=== PATIENT | female | born 1960 | race African-American/Black ===

== ENCOUNTER 2021-06-25 08:09 | Outpatient (CLI) | payer BC | END 2021-06-25 08:10 | disposition home or self-care (01) | LOC: CSHWCC 08:09 | PROVIDERS: ATTEND Nurse Practitioner Family | DX: M27.2 Inflammatory conditions of jaws (principal); E11.65 Type 2 diabetes mellitus with hyperglycemia; E78.2 Mixed hyperlipidemia; I10 Essential (primary) hypertension; Z85.3 Personal history of malignant neoplasm of breast; Z85.818 Personal history of malignant neoplasm of other sites of lip, oral cavity, and pharynx | CPT/HCPCS: 99202; G0463 ==

== ENCOUNTER 2024-09-03 09:19 | Outpatient (CLI) | payer BC | END 2024-09-03 09:20 | disposition home or self-care (01) | LOC: CSHWCC 09:19 | PROVIDERS: ATTEND Nurse Practitioner Family | DX: E11.622 Type 2 diabetes mellitus with other skin ulcer (principal); L97.212 Non-pressure chronic ulcer of right calf with fat layer exposed; L97.312 Non-pressure chronic ulcer of right ankle with fat layer exposed; G90.09 Other idiopathic peripheral autonomic neuropathy | CPT/HCPCS: 11043; 11046; 99214; G0463 ==

== ENCOUNTER 2024-09-07 14:20 | Outpatient (CLI) | payer BC | END 2024-09-07 14:21 | disposition home or self-care (01) | LOC: CSHWCC 14:20 | PROVIDERS: ATTEND Nurse Practitioner Family | DX: E11.622 Type 2 diabetes mellitus with other skin ulcer (principal); L97.212 Non-pressure chronic ulcer of right calf with fat layer exposed; L97.312 Non-pressure chronic ulcer of right ankle with fat layer exposed; G90.09 Other idiopathic peripheral autonomic neuropathy | CPT/HCPCS: 29581 ==

== ENCOUNTER 2024-09-10 15:03 | Outpatient (CLI) | payer BC | END 2024-09-10 15:04 | disposition home or self-care (01) | LOC: CSHWCC 15:03 | PROVIDERS: ATTEND Nurse Practitioner Family | DX: E11.622 Type 2 diabetes mellitus with other skin ulcer (principal); L97.212 Non-pressure chronic ulcer of right calf with fat layer exposed; L97.312 Non-pressure chronic ulcer of right ankle with fat layer exposed; G90.09 Other idiopathic peripheral autonomic neuropathy | CPT/HCPCS: 11042; 11045 ==

== ENCOUNTER 2024-09-17 14:26 | Outpatient (CLI) | payer BC | END 2024-09-17 14:27 | disposition home or self-care (01) | LOC: CSHWCC 14:26 | PROVIDERS: ATTEND Nurse Practitioner Family | DX: E11.622 Type 2 diabetes mellitus with other skin ulcer (principal); L97.212 Non-pressure chronic ulcer of right calf with fat layer exposed; L97.312 Non-pressure chronic ulcer of right ankle with fat layer exposed; G90.09 Other idiopathic peripheral autonomic neuropathy | CPT/HCPCS: 11042; 11045 ==

== ENCOUNTER 2024-10-05 11:53 | Outpatient (CLI) | payer BC | END 2024-10-05 11:54 | disposition home or self-care (01) | LOC: CSHWCC 11:53 | PROVIDERS: ATTEND Nurse Practitioner Family | DX: E11.622 Type 2 diabetes mellitus with other skin ulcer (principal); L97.212 Non-pressure chronic ulcer of right calf with fat layer exposed; L97.312 Non-pressure chronic ulcer of right ankle with fat layer exposed; G90.09 Other idiopathic peripheral autonomic neuropathy | CPT/HCPCS: 29581 ==

== ENCOUNTER 2024-10-08 15:36 | Outpatient (CLI) | payer BC | END 2024-10-08 15:37 | disposition home or self-care (01) | LOC: CSHWCC 15:36 | PROVIDERS: ATTEND Nurse Practitioner Family | DX: E11.622 Type 2 diabetes mellitus with other skin ulcer (principal); L97.212 Non-pressure chronic ulcer of right calf with fat layer exposed; L97.312 Non-pressure chronic ulcer of right ankle with fat layer exposed; G90.09 Other idiopathic peripheral autonomic neuropathy | CPT/HCPCS: 11042; 11045 ==

== ENCOUNTER 2025-02-24 09:14 | Outpatient (CLI) | payer BC | END 2025-02-24 09:15 | disposition home or self-care (01) | LOC: CSHWCC 09:14 | PROVIDERS: ATTEND Nurse Practitioner Family | DX: E11.622 Type 2 diabetes mellitus with other skin ulcer (principal); L97.212 Non-pressure chronic ulcer of right calf with fat layer exposed; L97.312 Non-pressure chronic ulcer of right ankle with fat layer exposed; G90.09 Other idiopathic peripheral autonomic neuropathy; I87.2 Venous insufficiency (chronic) (peripheral) | CPT/HCPCS: 15271; Q4186 ==

== ENCOUNTER 2025-03-29 12:23 | Outpatient (CLI) | payer BC | END 2025-03-29 12:24 | disposition home or self-care (01) | LOC: CSHWCC 12:23 | PROVIDERS: ATTEND Nurse Practitioner Family | DX: E11.622 Type 2 diabetes mellitus with other skin ulcer (principal); L97.212 Non-pressure chronic ulcer of right calf with fat layer exposed; L97.312 Non-pressure chronic ulcer of right ankle with fat layer exposed; G90.09 Other idiopathic peripheral autonomic neuropathy; I87.2 Venous insufficiency (chronic) (peripheral) | CPT/HCPCS: 11042 ==

== ENCOUNTER 2025-04-01 10:30 | Outpatient (CLI) | payer BC | END 2025-04-01 10:31 | disposition home or self-care (01) | LOC: CSHWCC 10:30 | PROVIDERS: ATTEND Nurse Practitioner Family | DX: E11.622 Type 2 diabetes mellitus with other skin ulcer (principal); L97.212 Non-pressure chronic ulcer of right calf with fat layer exposed; L97.312 Non-pressure chronic ulcer of right ankle with fat layer exposed; G90.09 Other idiopathic peripheral autonomic neuropathy; I87.2 Venous insufficiency (chronic) (peripheral) | CPT/HCPCS: 29581 ==

== ENCOUNTER 2025-04-05 15:53 | Outpatient (CLI) | payer BC | END 2025-04-05 15:54 | disposition home or self-care (01) | LOC: CSHWCC 15:53 | PROVIDERS: ATTEND Nurse Practitioner Family | DX: E11.622 Type 2 diabetes mellitus with other skin ulcer (principal); L97.212 Non-pressure chronic ulcer of right calf with fat layer exposed; L97.312 Non-pressure chronic ulcer of right ankle with fat layer exposed; I87.2 Venous insufficiency (chronic) (peripheral); G90.09 Other idiopathic peripheral autonomic neuropathy | CPT/HCPCS: 11042 ==

== ENCOUNTER 2025-04-08 08:08 | Outpatient (CLI) | payer BC | END 2025-04-08 08:09 | disposition home or self-care (01) | LOC: CSHWCC 08:08 | PROVIDERS: ATTEND Nurse Practitioner Family | DX: E11.622 Type 2 diabetes mellitus with other skin ulcer (principal); L97.212 Non-pressure chronic ulcer of right calf with fat layer exposed; L97.312 Non-pressure chronic ulcer of right ankle with fat layer exposed; G90.09 Other idiopathic peripheral autonomic neuropathy; I87.2 Venous insufficiency (chronic) (peripheral) | CPT/HCPCS: 29581 ==

== ENCOUNTER 2025-04-13 15:46 | Outpatient (CLI) | payer BC | END 2025-04-13 15:47 | disposition home or self-care (01) | LOC: CSHWCC 15:46 | PROVIDERS: ATTEND Nurse Practitioner Family | DX: E11.622 Type 2 diabetes mellitus with other skin ulcer (principal); L97.212 Non-pressure chronic ulcer of right calf with fat layer exposed; L97.312 Non-pressure chronic ulcer of right ankle with fat layer exposed; I87.2 Venous insufficiency (chronic) (peripheral); G90.09 Other idiopathic peripheral autonomic neuropathy | CPT/HCPCS: 11042 ==

== ENCOUNTER 2025-04-28 14:59 | Outpatient (CLI) | payer BC | END 2025-04-28 15:00 | disposition home or self-care (01) | LOC: CSHWCC 14:59 | PROVIDERS: ATTEND Nurse Practitioner Family | DX: E11.622 Type 2 diabetes mellitus with other skin ulcer (principal); L97.212 Non-pressure chronic ulcer of right calf with fat layer exposed; L97.312 Non-pressure chronic ulcer of right ankle with fat layer exposed; G90.09 Other idiopathic peripheral autonomic neuropathy; I87.2 Venous insufficiency (chronic) (peripheral) | CPT/HCPCS: 11042; 11045; 99213; G0463 ==

== ENCOUNTER 2025-05-03 15:16 | Outpatient (CLI) | payer BC | END 2025-05-03 15:17 | disposition home or self-care (01) | LOC: CSHWCC 15:16 | PROVIDERS: ATTEND Nurse Practitioner Family | DX: E11.622 Type 2 diabetes mellitus with other skin ulcer (principal); L97.212 Non-pressure chronic ulcer of right calf with fat layer exposed; L97.312 Non-pressure chronic ulcer of right ankle with fat layer exposed; G90.09 Other idiopathic peripheral autonomic neuropathy; I87.2 Venous insufficiency (chronic) (peripheral) | CPT/HCPCS: 29581 ==

== ENCOUNTER 2025-05-10 15:21 | Outpatient (CLI) | payer BC | END 2025-05-10 15:22 | disposition home or self-care (01) | LOC: CSHWCC 15:21 | PROVIDERS: ATTEND Nurse Practitioner Family | DX: E11.622 Type 2 diabetes mellitus with other skin ulcer (principal); L97.212 Non-pressure chronic ulcer of right calf with fat layer exposed; L97.312 Non-pressure chronic ulcer of right ankle with fat layer exposed; I87.2 Venous insufficiency (chronic) (peripheral); L08.9 Local infection of the skin and subcutaneous tissue, unspecified; E11.43 Type 2 diabetes mellitus with diabetic autonomic (poly)neuropathy | CPT/HCPCS: 11042; 99213; G0463 ==

== ENCOUNTER 2025-05-13 15:21 | Outpatient (CLI) | payer BC | END 2025-05-13 15:22 | disposition home or self-care (01) | LOC: CSHWCC 15:21 | PROVIDERS: ATTEND Nurse Practitioner Family | DX: E11.622 Type 2 diabetes mellitus with other skin ulcer (principal); L97.212 Non-pressure chronic ulcer of right calf with fat layer exposed; L97.312 Non-pressure chronic ulcer of right ankle with fat layer exposed; I87.2 Venous insufficiency (chronic) (peripheral); L08.9 Local infection of the skin and subcutaneous tissue, unspecified; G90.09 Other idiopathic peripheral autonomic neuropathy | CPT/HCPCS: 29581 ==

== ENCOUNTER 2025-05-17 15:16 | Outpatient (CLI) | payer BC | END 2025-05-17 15:17 | disposition home or self-care (01) | LOC: CSHWCC 15:16 | PROVIDERS: ATTEND Nurse Practitioner Family | DX: E11.622 Type 2 diabetes mellitus with other skin ulcer (principal); L97.212 Non-pressure chronic ulcer of right calf with fat layer exposed; L97.312 Non-pressure chronic ulcer of right ankle with fat layer exposed; G90.09 Other idiopathic peripheral autonomic neuropathy; I87.2 Venous insufficiency (chronic) (peripheral); L08.9 Local infection of the skin and subcutaneous tissue, unspecified | CPT/HCPCS: 11042 ==

== ENCOUNTER 2025-05-20 15:10 | Outpatient (CLI) | payer BC | END 2025-05-20 15:11 | disposition home or self-care (01) | LOC: CSHWCC 15:10 | PROVIDERS: ATTEND Nurse Practitioner Family | DX: E11.622 Type 2 diabetes mellitus with other skin ulcer (principal); L97.212 Non-pressure chronic ulcer of right calf with fat layer exposed; L97.312 Non-pressure chronic ulcer of right ankle with fat layer exposed; G90.09 Other idiopathic peripheral autonomic neuropathy; I87.2 Venous insufficiency (chronic) (peripheral); L08.9 Local infection of the skin and subcutaneous tissue, unspecified | CPT/HCPCS: 29581 ==

== ENCOUNTER 2025-05-23 15:43 | Outpatient (CLI) | payer BC | END 2025-05-23 15:44 | disposition home or self-care (01) | LOC: CSHWCC 15:43 | PROVIDERS: ATTEND Nurse Practitioner Family | DX: E11.622 Type 2 diabetes mellitus with other skin ulcer (principal); L97.212 Non-pressure chronic ulcer of right calf with fat layer exposed; L97.312 Non-pressure chronic ulcer of right ankle with fat layer exposed; E11.43 Type 2 diabetes mellitus with diabetic autonomic (poly)neuropathy; I87.2 Venous insufficiency (chronic) (peripheral); L08.9 Local infection of the skin and subcutaneous tissue, unspecified | CPT/HCPCS: 99211; G0463 ==

== ENCOUNTER 2025-05-26 15:26 | Outpatient (CLI) | payer BC | END 2025-05-26 15:27 | disposition home or self-care (01) | LOC: CSHWCC 15:26 | PROVIDERS: ATTEND Nurse Practitioner Family | DX: E11.622 Type 2 diabetes mellitus with other skin ulcer (principal); L97.212 Non-pressure chronic ulcer of right calf with fat layer exposed; L97.312 Non-pressure chronic ulcer of right ankle with fat layer exposed; G90.09 Other idiopathic peripheral autonomic neuropathy; I87.2 Venous insufficiency (chronic) (peripheral); L08.9 Local infection of the skin and subcutaneous tissue, unspecified | CPT/HCPCS: 11042 ==

== ENCOUNTER 2025-06-02 15:09 | Outpatient (CLI) | payer BC | END 2025-06-02 15:10 | disposition home or self-care (01) | LOC: CSHWCC 15:09 | PROVIDERS: ATTEND Nurse Practitioner Family | DX: E11.622 Type 2 diabetes mellitus with other skin ulcer (principal); L97.212 Non-pressure chronic ulcer of right calf with fat layer exposed; L97.312 Non-pressure chronic ulcer of right ankle with fat layer exposed; G90.09 Other idiopathic peripheral autonomic neuropathy; I87.2 Venous insufficiency (chronic) (peripheral); L08.9 Local infection of the skin and subcutaneous tissue, unspecified | CPT/HCPCS: 11042; 11045; 99213; G0463 ==

== ENCOUNTER 2025-06-07 15:01 | Outpatient (CLI) | payer BC | END 2025-06-07 15:02 | disposition home or self-care (01) | LOC: CSHWCC 15:01 | PROVIDERS: ATTEND Nurse Practitioner Family | DX: E11.622 Type 2 diabetes mellitus with other skin ulcer (principal); L97.212 Non-pressure chronic ulcer of right calf with fat layer exposed; L97.312 Non-pressure chronic ulcer of right ankle with fat layer exposed; G90.09 Other idiopathic peripheral autonomic neuropathy; I87.2 Venous insufficiency (chronic) (peripheral); L08.9 Local infection of the skin and subcutaneous tissue, unspecified | CPT/HCPCS: 29581 ==

== ENCOUNTER 2025-06-10 15:19 | Outpatient (CLI) | payer BC | END 2025-06-10 15:20 | disposition home or self-care (01) | LOC: CSHWCC 15:19 | PROVIDERS: ATTEND Nurse Practitioner Family | DX: E11.622 Type 2 diabetes mellitus with other skin ulcer (principal); L97.212 Non-pressure chronic ulcer of right calf with fat layer exposed; L97.312 Non-pressure chronic ulcer of right ankle with fat layer exposed; G90.09 Other idiopathic peripheral autonomic neuropathy; I87.2 Venous insufficiency (chronic) (peripheral); L08.9 Local infection of the skin and subcutaneous tissue, unspecified | CPT/HCPCS: 11042; 11045 ==

== ENCOUNTER 2025-06-14 14:53 | Outpatient (CLI) | payer BC | END 2025-06-14 14:54 | disposition home or self-care (01) | LOC: CSHWCC 14:53 | PROVIDERS: ATTEND Nurse Practitioner Family | DX: E11.622 Type 2 diabetes mellitus with other skin ulcer (principal); L97.212 Non-pressure chronic ulcer of right calf with fat layer exposed; L97.312 Non-pressure chronic ulcer of right ankle with fat layer exposed; G90.09 Other idiopathic peripheral autonomic neuropathy; I87.2 Venous insufficiency (chronic) (peripheral); L08.9 Local infection of the skin and subcutaneous tissue, unspecified | CPT/HCPCS: 11042; 99213; G0463 ==

== ENCOUNTER 2025-06-17 14:59 | Outpatient (CLI) | payer BC | END 2025-06-17 15:00 | disposition home or self-care (01) | LOC: CSHWCC 14:59 | PROVIDERS: ATTEND Nurse Practitioner Family | DX: E11.622 Type 2 diabetes mellitus with other skin ulcer (principal); L97.212 Non-pressure chronic ulcer of right calf with fat layer exposed; L97.312 Non-pressure chronic ulcer of right ankle with fat layer exposed; G90.09 Other idiopathic peripheral autonomic neuropathy; I87.2 Venous insufficiency (chronic) (peripheral); L08.9 Local infection of the skin and subcutaneous tissue, unspecified | CPT/HCPCS: 99212; G0463 ==

== ENCOUNTER 2025-06-24 15:00 | Outpatient (CLI) | payer BC | END 2025-06-24 15:01 | disposition home or self-care (01) | LOC: CSHWCC 15:00 | PROVIDERS: ATTEND Nurse Practitioner Family | DX: E11.622 Type 2 diabetes mellitus with other skin ulcer (principal); L97.212 Non-pressure chronic ulcer of right calf with fat layer exposed; L97.312 Non-pressure chronic ulcer of right ankle with fat layer exposed; G90.09 Other idiopathic peripheral autonomic neuropathy; I87.2 Venous insufficiency (chronic) (peripheral); L08.9 Local infection of the skin and subcutaneous tissue, unspecified | CPT/HCPCS: 11042; 29581 ==

== ENCOUNTER 2025-06-30 15:08 | Outpatient (CLI) | payer BC | END 2025-06-30 15:09 | disposition home or self-care (01) | LOC: CSHWCC 15:08 | PROVIDERS: ATTEND Nurse Practitioner Family | DX: E11.622 Type 2 diabetes mellitus with other skin ulcer (principal); L97.212 Non-pressure chronic ulcer of right calf with fat layer exposed; L97.312 Non-pressure chronic ulcer of right ankle with fat layer exposed; G90.09 Other idiopathic peripheral autonomic neuropathy; I87.2 Venous insufficiency (chronic) (peripheral); L08.9 Local infection of the skin and subcutaneous tissue, unspecified | CPT/HCPCS: 11042 ==

== ENCOUNTER 2025-08-11 15:04 | Outpatient (CLI) | payer BC | END 2025-08-11 15:05 | disposition home or self-care (01) | LOC: CSHWCC 15:04 | PROVIDERS: ATTEND Nurse Practitioner Family | DX: E11.622 Type 2 diabetes mellitus with other skin ulcer (principal); L97.212 Non-pressure chronic ulcer of right calf with fat layer exposed; L97.312 Non-pressure chronic ulcer of right ankle with fat layer exposed; G90.09 Other idiopathic peripheral autonomic neuropathy; I87.2 Venous insufficiency (chronic) (peripheral) | CPT/HCPCS: 97597; 97598 ==

== ENCOUNTER 2025-08-18 15:12 | Outpatient (CLI) | payer BC | END 2025-08-18 15:13 | disposition home or self-care (01) | LOC: CSHWCC 15:12 | PROVIDERS: ATTEND Nurse Practitioner Family | DX: E11.622 Type 2 diabetes mellitus with other skin ulcer (principal); L97.212 Non-pressure chronic ulcer of right calf with fat layer exposed; L97.312 Non-pressure chronic ulcer of right ankle with fat layer exposed; G90.09 Other idiopathic peripheral autonomic neuropathy; I87.2 Venous insufficiency (chronic) (peripheral) ==

== ENCOUNTER 2025-08-29 13:49 | Outpatient (CLI) | payer BC | END 2025-08-29 13:50 | disposition home or self-care (01) | LOC: CSHWCC 13:49 | PROVIDERS: ATTEND Nurse Practitioner Family | DX: E11.622 Type 2 diabetes mellitus with other skin ulcer (principal); L97.212 Non-pressure chronic ulcer of right calf with fat layer exposed; L97.312 Non-pressure chronic ulcer of right ankle with fat layer exposed; G90.09 Other idiopathic peripheral autonomic neuropathy; I87.2 Venous insufficiency (chronic) (peripheral) | CPT/HCPCS: 11042 ==